=== PATIENT | female | born 1935 | race African-American/Black ===

== ENCOUNTER 2019-02-09 21:04 | Inpatient (IN) ==
[2019-02-09] MEDS ORDERED: SODIUM CHLORIDE 0.9% 500 ML IV STA (21:40)
[2019-02-09] MEDS ORDERED: CEFTAROLINE 600 MG in SODIUM CHLORIDE 0.9% 100 ML IV STA (21:40)
[2019-02-09] MEDS ORDERED: FUROSEMIDE 100 MG/10 ML VIAL IV STA (21:40)
[2019-02-09] MEDS ORDERED: ONDANSETRON 4 MG/2 ML VIAL IV STA (21:40)
[2019-02-09] MEDS ORDERED: ALBUTEROL/IPRATROPIUM 3 ML NEB RESP TX STA (21:40)
[2019-02-09 23:28] LABS: Basophils % 0.2 % (0.0-0.8); Eosinophils % 0.1 % (0.00-10.9); Hematocrit 25.9 VOL% (35.7-47.0); Hemoglobin 7.8 GM/DL (12.0-16.0); Immature Granulocytes % 1.2 %; Immature Granulocytes Absolute 0.21 #; Lymphocytes # 1.4 10*3/uL (1.4-4.0); Lymphocytes % 7.8 % (21.3-54.2); Mean Corpuscular HGB Conc 30.1 GM/DL (32-36); Mean Corpuscular Volume 85.5 FL (87-102); Mean Platelet Volume 11.3 FL (9.6-12.0); Monocytes % 5.3 % (1.7-12.7); Neutrophils % 85.4 % (38.7-73.9); Platelet Count 153 T/CUMM (130-400); Red Blood Count 3.03 MC/CUMM (3.8-5.5); Red Cell Distribution Width 18.6 % (9.3-17.3); White Blood Count 17.9 T/CUMM (4-12)
[2019-02-09 23:37] LABS: Alanine Aminotransferase 25 U/L (13-56); Albumin 2.9 G/DL (3.4-5.0); Alkaline Phosphatase 91 U/L (45-117); Aspartate Amino Transferase 31 U/L (0-37); Blood Urea Nitrogen 75 MG/DL (7-18); Calcium 8.6 MG/DL (8.5-10.1); Glucose 128 MG/DL (74-106); Total Protein 6.3 G/DL (6.4-8.3)
[2019-02-09 23:40] LABS: INR 4.7
[2019-02-09 23:44] LABS: PT Patient Result 50.3 SECS
[2019-02-09 23:46] LABS: Apearance,Urine CLEAR (Clear); Bilirubin,Urine Negative (Negative); Blood, Urine Negative (Negative); Glucose,Urine (UA) Negative (Negative); Hyaline Casts,Urine 38 /LPF (0-3); Ketones,Urine Negative (Negative); Mucus,Urine Occasional /LPF (Occasional); Nitrite,Urine Negative (Negative); Protein,Urine Negative; RBC,Urine 1 /HPF (0-4); Squamous Epithelial Cell,Urine Occasional /HPF (0-10); Urine Color Yellow (Yellow); Urine Specific Gravity 1.012 (1.001-1.035); Urine Urobilinogen < 2.0 EU/DL (0.2-1.0); WBC,Urine 4 /HPF (0-6)
[2019-02-10] MEDS ORDERED: guaiFENesin/DM ER 600-30 MG TABLET PO PRN (00:48)
[2019-02-10] MEDS ORDERED: ACETAMINOPHEN 325 MG TABLET PO PRN (00:48)
[2019-02-10] MEDS ORDERED: MORPHINE 4 MG/1 ML VIAL IV PRN (00:48)
[2019-02-10] MEDS ORDERED: NICOTINE 21 MG/24 HR PATCH TRANSDERM PRN (00:48)
[2019-02-10] MEDS ORDERED: diphenhydrAMINE CAP 25 MG CAPSULE PO PRN (00:48)
[2019-02-10] MEDS ORDERED: BISACODYL 5 MG TABLET PO PRN (00:48)
[2019-02-10] MEDS ORDERED: ONDANSETRON 4 MG/2 ML VIAL IV PRN (00:48)
[2019-02-10] MEDS: ALBUTEROL/IPRATROPIUM 3 ML NEB RESP TX SCH ×4 (01:21→19:10)
[2019-02-10] MEDS: AZITHROMYCIN INJ 500 MG in SODIUM CHLORIDE 0.9% 250 ML IV SCH (02:56)
[2019-02-10] MEDS: cefTRIAXone 1,000 MG in SYRINGE 1 EACH IV SCH ×2 (04:32→17:01)
[2019-02-10 05:17] LABS: Albumin 2.6 G/DL (3.4-5.0); Calcium 8.1 MG/DL (8.5-10.1); Osmolality,Calculated 307.8 MOS/KG (273-304); Total Protein 5.9 G/DL (6.4-8.3)
[2019-02-10 05:21] LABS: Basophils % 0.2 % (0.0-0.8); Eosinophils % 0.1 % (0.00-10.9); Hematocrit 23.2 VOL% (35.7-47.0); Hemoglobin 7.2 GM/DL (12.0-16.0); Immature Granulocytes % 0.8 %; Immature Granulocytes Absolute 0.16 #; Lymphocytes # 1.8 10*3/uL (1.4-4.0); Lymphocytes % 9.4 % (21.3-54.2); Mean Corpuscular Volume 83.5 FL (87-102); Mean Platelet Volume 11.4 FL (9.6-12.0); Monocytes % 5.2 % (1.7-12.7); Neutrophils % 84.3 % (38.7-73.9); Platelet Count 152 T/CUMM (130-400); Red Blood Count 2.78 MC/CUMM (3.8-5.5); Red Cell Distribution Width 18.6 % (9.3-17.3); White Blood Count 19.1 T/CUMM (4-12)
[2019-02-10] MEDS ORDERED: ONDANSETRON ODT 4 MG TABLET PO PRN (05:27)
[2019-02-10 05:32] LABS: Folate > 24.0 NG/ML (5.4-24.0); Vitamin B12 1492 PG/ML (211-911)
[2019-02-10 06:44] LABS: Sedimentation Rate-Westergren 78 MM/HR (0-30)
[2019-02-10] MEDS: CARVEDILOL 25 MG TABLET PO SCH ×2 (08:21→21:32)
[2019-02-10] MEDS: amLODIPine 5 MG TABLET PO SCH (08:21)
[2019-02-10] MEDS: ASPIRIN EC 81 MG TABLET PO SCH (08:21)
[2019-02-10] MEDS: PANTOPRAZOLE 40 MG TABLET PO SCH (08:21)
[2019-02-10] MEDS: ATORVASTATIN 40 MG TABLET PO SCH (08:21)
[2019-02-10] MEDS: ALLOPURINOL 100 MG TABLET PO SCH (08:21)
[2019-02-10] MEDS ORDERED: GABAPENTIN 100 MG CAPSULE PO SCH (09:00)
[2019-02-10] MEDS ORDERED: APIXABAN 2.5 MG TABLET PO SCH (09:00)
[2019-02-10 11:35] LABS: Troponin I 0.139 NG/ML (0.00-0.045)
[2019-02-10 14:15] LABS: Troponin I 0.123 NG/ML (0.00-0.045)
[2019-02-10] MEDS ORDERED: SODIUM CHLORIDE 0.9% 1,000 ML IV PRN (15:17)
[2019-02-10] MEDS: GABAPENTIN 300 MG CAPSULE PO SCH (21:32)
[2019-02-10] MEDS: DOCUSATE/SENNA 50-8.6 MG TABLET PO SCH (21:32)
[2019-02-10] MEDS: DOXAZOSIN 4 MG TABLET PO SCH (21:32)
[2019-02-11] MEDS: ALBUTEROL/IPRATROPIUM 3 ML NEB RESP TX SCH ×5 (01:17→23:27)
[2019-02-11] MEDS: AZITHROMYCIN INJ 500 MG in SODIUM CHLORIDE 0.9% 250 ML IV SCH (02:20)
[2019-02-11 02:52] LABS: Basophils % 0.1 % (0.0-0.8); Eosinophils # 0.3 10*3/uL (0.0-0.87); Eosinophils % 1.5 % (0.00-10.9); Hematocrit 29.3 VOL% (35.7-47.0); Hemoglobin 9.2 GM/DL (12.0-16.0); Immature Granulocytes % 0.5 %; Immature Granulocytes Absolute 0.08 #; Lymphocytes # 1.8 10*3/uL (1.4-4.0); Lymphocytes % 10.1 % (21.3-54.2); Mean Corpuscular HGB Conc 31.4 GM/DL (32-36); Mean Corpuscular Volume 85.2 FL (87-102); Mean Platelet Volume 11.6 FL (9.6-12.0); Monocytes % 5.3 % (1.7-12.7); Neutrophils % 82.5 % (38.7-73.9); Platelet Count 141 T/CUMM (130-400); Red Blood Count 3.44 MC/CUMM (3.8-5.5); Red Cell Distribution Width 17.4 % (9.3-17.3); White Blood Count 17.5 T/CUMM (4-12)
[2019-02-11] MEDS: cefTRIAXone 1,000 MG in SYRINGE 1 EACH IV SCH ×2 (04:17→15:11)
[2019-02-11 04:24] LABS: Calcium 8.3 MG/DL (8.5-10.1); Risk Ratio 1.75; VLDL CHOLESTEROL 13.6 MG/DL
[2019-02-11] MEDS: amLODIPine 5 MG TABLET PO SCH (08:20)
[2019-02-11] MEDS: ALLOPURINOL 100 MG TABLET PO SCH (08:20)
[2019-02-11] MEDS: CARVEDILOL 25 MG TABLET PO SCH ×2 (08:20→22:03)
[2019-02-11] MEDS: ATORVASTATIN 40 MG TABLET PO SCH (08:20)
[2019-02-11] MEDS: PANTOPRAZOLE 40 MG TABLET PO SCH (08:20)
[2019-02-11] MEDS: ASPIRIN EC 81 MG TABLET PO SCH (08:20)
[2019-02-11] MEDS: DOCUSATE/SENNA 50-8.6 MG TABLET PO SCH (22:02)
[2019-02-11] MEDS: GABAPENTIN 300 MG CAPSULE PO SCH (22:02)
[2019-02-11] MEDS: DOXAZOSIN 4 MG TABLET PO SCH (22:03)
[2019-02-12] MEDS: AZITHROMYCIN INJ 500 MG in SODIUM CHLORIDE 0.9% 250 ML IV SCH (02:48)
[2019-02-12] MEDS: cefTRIAXone 1,000 MG in SYRINGE 1 EACH IV SCH ×2 (03:12→15:09)
[2019-02-12 05:22] LABS: Basophils % 0.2 % (0.0-0.8); Eosinophils # 0.3 10*3/uL (0.0-0.87); Eosinophils % 2.6 % (0.00-10.9); Hematocrit 29.6 VOL% (35.7-47.0); Hemoglobin 9.3 GM/DL (12.0-16.0); Immature Granulocytes % 0.4 %; Immature Granulocytes Absolute 0.05 #; Lymphocytes # 1.3 10*3/uL (1.4-4.0); Lymphocytes % 10.1 % (21.3-54.2); Mean Corpuscular HGB Conc 31.4 GM/DL (32-36); Mean Corpuscular Volume 85.3 FL (87-102); Mean Platelet Volume 11.2 FL (9.6-12.0); Monocytes % 5.9 % (1.7-12.7); Neutrophils % 80.8 % (38.7-73.9); Platelet Count 135 T/CUMM (130-400); Red Blood Count 3.47 MC/CUMM (3.8-5.5); Red Cell Distribution Width 17.3 % (9.3-17.3); White Blood Count 13.1 T/CUMM (4-12)
[2019-02-12 05:39] LABS: Calcium 8.3 MG/DL (8.5-10.1); Osmolality,Calculated 302.1 MOS/KG (273-304)
[2019-02-12] MEDS: ALBUTEROL/IPRATROPIUM 3 ML NEB RESP TX SCH ×3 (07:48→19:06)
[2019-02-12] MEDS: ALLOPURINOL 100 MG TABLET PO SCH (08:36)
[2019-02-12] MEDS: CARVEDILOL 25 MG TABLET PO SCH ×2 (08:36→20:07)
[2019-02-12] MEDS: amLODIPine 5 MG TABLET PO SCH (08:36)
[2019-02-12] MEDS: ATORVASTATIN 40 MG TABLET PO SCH (08:36)
[2019-02-12] MEDS: ASPIRIN EC 81 MG TABLET PO SCH (08:36)
[2019-02-12] MEDS: PANTOPRAZOLE 40 MG TABLET PO SCH (08:36)
[2019-02-12] MEDS: DOCUSATE/SENNA 50-8.6 MG TABLET PO SCH (20:07)
[2019-02-12] MEDS: GABAPENTIN 300 MG CAPSULE PO SCH (20:07)
[2019-02-12] MEDS: DOXAZOSIN 4 MG TABLET PO SCH (20:07)
[2019-02-13] MEDS: ALBUTEROL/IPRATROPIUM 3 ML NEB RESP TX SCH ×3 (00:22→14:08)
[2019-02-13] MEDS: AZITHROMYCIN INJ 500 MG in SODIUM CHLORIDE 0.9% 250 ML IV SCH (02:58)
[2019-02-13] MEDS: cefTRIAXone 1,000 MG in SYRINGE 1 EACH IV SCH ×2 (03:02→15:45)
[2019-02-13 05:57] LABS: Basophils % 0.3 % (0.0-0.8); Eosinophils # 0.5 10*3/uL (0.0-0.87); Eosinophils % 4.6 % (0.00-10.9); Hematocrit 31.7 VOL% (35.7-47.0); Hemoglobin 9.5 GM/DL (12.0-16.0); Immature Granulocytes % 0.5 %; Immature Granulocytes Absolute 0.05 #; Lymphocytes % 10.3 % (21.3-54.2); Mean Corpuscular Volume 87.3 FL (87-102); Mean Platelet Volume 11.6 FL (9.6-12.0); Monocytes % 7.2 % (1.7-12.7); Neutrophils % 77.1 % (38.7-73.9); Platelet Count 149 T/CUMM (130-400); Red Blood Count 3.63 MC/CUMM (3.8-5.5); Red Cell Distribution Width 17.2 % (9.3-17.3)
[2019-02-13 06:12] LABS: Calcium 8.3 MG/DL (8.5-10.1); Osmolality,Calculated 298.4 MOS/KG (273-304)
[2019-02-13] MEDS: ALLOPURINOL 100 MG TABLET PO SCH (08:55)
[2019-02-13] MEDS: CARVEDILOL 25 MG TABLET PO SCH (08:55)
[2019-02-13] MEDS: ASPIRIN EC 81 MG TABLET PO SCH (08:55)
[2019-02-13] MEDS: ATORVASTATIN 40 MG TABLET PO SCH (08:55)
[2019-02-13] MEDS: PANTOPRAZOLE 40 MG TABLET PO SCH (08:56)
[2019-02-13] MEDS: amLODIPine 5 MG TABLET PO SCH (08:56)
[2019-02-13 12:50] VITALS: BP 146/73
[2019-02-23 17:21] LABS: Variant 17.9 = Hb Montgomery %
[2019-02-27 13:01] LABS: Hemoglobin A1 (Alkaline) 80.8 % (96.5-98.5); Hemoglobin A2 (Alkaline) 2.8 % (1.5-3.5)
== END 2019-02-13 16:15 | disposition swing bed (61) | DRG 194 ==
LOC: EDUNIT# → EDBD → N.ED 21:04 → N.EDINP 21:04 → N.5E 02-10 01:30 → SUATTDRO 02-10 10:32
PROVIDERS: ATTEND Internal Medicine

== ENCOUNTER 2019-09-14 16:04 | Inpatient (IN) ==
[2019-09-14 17:04] LABS: Hematocrit 26.1 VOL% (35.7-47.0); Hemoglobin 8.2 GM/DL (12.0-16.0); Immature Granulocytes % 0.3 %; Immature Granulocytes Absolute 0.03 #; Mean Corpuscular HGB Conc 31.4 GM/DL (32-36); Mean Corpuscular Volume 85.6 FL (87-102); Mean Platelet Volume 11.7 FL (9.6-12.0); Monocytes % 3.6 % (1.7-12.7); Neutrophils % 85.1 % (38.7-73.9); Platelet Count 212 T/CUMM (130-400); Red Blood Count 3.05 MC/CUMM (3.8-5.5); Red Cell Distribution Width 21.3 % (9.3-17.3); White Blood Count 8.8 T/CUMM (4-12)
[2019-09-14 17:45] LABS: Albumin 3.3 G/DL (3.4-5.0); Bilirubin,Total 0.6 MG/DL (0.2-1.0); Calcium 8.6 MG/DL (8.5-10.1); Osmolality,Calculated 327.7 MOS/KG (273-304); Thyroid Stimulating Hormone 3.38 uIU/ml (0.358-3.74)
[2019-09-14] MEDS ORDERED: PANTOPRAZOLE 40 MG VIAL IV STA (18:44)
[2019-09-14] MEDS ORDERED: SODIUM CHLORIDE 0.9% 500 ML IV STA (18:44)
[2019-09-14] MEDS ORDERED: ONDANSETRON 4 MG/2 ML VIAL IV STA (18:44)
[2019-09-14 19:22] LABS: Basophils % 0.1 % (0.0-0.8); Hematocrit 26.2 VOL% (35.7-47.0); Hemoglobin 8.3 GM/DL (12.0-16.0); Immature Granulocytes % 0.3 %; Immature Granulocytes Absolute 0.03 #; Lymphocytes # 1.3 10*3/uL (1.4-4.0); Lymphocytes % 14.3 % (21.3-54.2); Mean Corpuscular HGB Conc 31.7 GM/DL (32-36); Mean Corpuscular Volume 85.3 FL (87-102); Mean Platelet Volume 10.6 FL (9.6-12.0); Monocytes % 3.5 % (1.7-12.7); Neutrophils % 81.8 % (38.7-73.9); Platelet Count 207 T/CUMM (130-400); Red Blood Count 3.07 MC/CUMM (3.8-5.5); Red Cell Distribution Width 21.4 % (9.3-17.3); White Blood Count 8.9 T/CUMM (4-12)
[2019-09-14 19:36] LABS: PT Patient Result 10.8 SECS (9.6-12.2)
[2019-09-14 19:44] LABS: Albumin 3.3 G/DL (3.4-5.0); Bilirubin,Total 0.6 MG/DL (0.2-1.0); Calcium 8.7 MG/DL (8.5-10.1); Total Protein 6.7 G/DL (6.4-8.3)
[2019-09-14 21:36] LABS: Apearance,Urine CLEAR (Clear); Bilirubin,Urine Negative (Negative); Blood, Urine Negative (Negative); Glucose,Urine (UA) Negative (Negative); Hyaline Casts,Urine 4 /LPF (0-3); Ketones,Urine Negative (Negative); Mucus,Urine Occasional /LPF (Occasional); Nitrite,Urine Negative (Negative); Protein,Urine Negative; RBC,Urine <1 /HPF (0-4); Squamous Epithelial Cell,Urine Occasional /HPF (0-10); Urine Color Yellow (Yellow); Urine Specific Gravity 1.009 (1.001-1.035); Urine Urobilinogen < 2.0 EU/DL (0.2-1.0); WBC,Urine 1 /HPF (0-6)
[2019-09-14] MEDS ORDERED: GLUCAGON 1 MG VIAL IM PRN (23:31)
[2019-09-14] MEDS ORDERED: DOCUSATE SODIUM 100 MG CAPSULE PO PRN (23:31)
[2019-09-14] MEDS ORDERED: DEXTROSE 50% 25 GM/50 ML VIAL IV PRN (23:31)
[2019-09-14] MEDS ORDERED: ALBUTEROL/IPRATROPIUM 3 ML NEB RESP TX PRN (23:31)
[2019-09-14] MEDS ORDERED: ACETAMINOPHEN 325 MG TABLET PO PRN (23:31)
[2019-09-14] MEDS ORDERED: ONDANSETRON 4 MG/2 ML VIAL IV PRN (23:31)
[2019-09-14] MEDS ORDERED: SODIUM CHLORIDE 0.9% 1,000 ML IV PRN (23:31)
[2019-09-15] MEDS ORDERED: INFLUENZA VIRUS VACCINE 0.5 ML SYRINGE IM ONE (00:17)
[2019-09-15 00:18] LABS: Hematocrit 24.7 VOL% (35.7-47.0); Hemoglobin 7.9 GM/DL (12.0-16.0)
[2019-09-15] MEDS: DOXAZOSIN 4 MG TABLET PO SCH ×2 (00:40→21:26)
[2019-09-15] MEDS: ISOSORBIDE DINITRATE 20 MG TABLET PO SCH ×3 (00:41→21:26)
[2019-09-15] MEDS: carvediloL 25 MG TABLET PO SCH ×3 (00:41→16:42)
[2019-09-15] MEDS ORDERED: INSULIN GLARGINE 100 UNIT/ML SUBCUT SCH (07:30)
[2019-09-15] MEDS: INSULIN REGULAR 100 UNIT/ML SUBCUT SCH ×4 (08:05→21:27)
[2019-09-15 08:28] LABS: Basophils % 0.2 % (0.0-0.8); Eosinophils # 0.1 10*3/uL (0.0-0.87); Eosinophils % 1.7 % (0.00-10.9); Hematocrit 29.7 VOL% (35.7-47.0); Immature Granulocytes % 0.5 %; Immature Granulocytes Absolute 0.03 #; Lymphocytes # 1.6 10*3/uL (1.4-4.0); Lymphocytes % 25.8 % (21.3-54.2); Mean Corpuscular Volume 84.1 FL (87-102); Mean Platelet Volume 11.1 FL (9.6-12.0); Monocytes % 7.9 % (1.7-12.7); Neutrophils % 63.9 % (38.7-73.9); Platelet Count 187 T/CUMM (130-400); Red Blood Count 3.53 MC/CUMM (3.8-5.5); Red Cell Distribution Width 19.3 % (9.3-17.3); White Blood Count 6.3 T/CUMM (4-12)
[2019-09-15 08:41] LABS: Hemoglobin 9.8 GM/DL (12.0-16.0)
[2019-09-15 08:43] LABS: Calcium 8.5 MG/DL (8.5-10.1); Osmolality,Calculated 321.4 MOS/KG (273-304)
[2019-09-15] MEDS: DEXTROSE 10% 250 ML BAG IV PRN ×2 (08:46→09:36)
[2019-09-15] MEDS: PANTOPRAZOLE 40 MG VIAL IV SCH ×2 (09:29→21:25)
[2019-09-15] MEDS ORDERED: propofoL 200 MG/20 ML VIAL IV ONE (10:00)
[2019-09-15] MEDS ORDERED: ETOMIDATE 20 MG/10 ML VIAL IV ONE (10:00)
[2019-09-15] MEDS ORDERED: LIDOCAINE 2% 5 ML VIAL ONE (10:00)
[2019-09-15] MEDS: MULTIVITAMIN (CENTRUM) TABLET PO SCH (10:10)
[2019-09-15] MEDS: LOSARTAN 50 MG TABLET PO SCH (10:10)
[2019-09-15] MEDS: allopurinoL 100 MG TABLET PO SCH (10:11)
[2019-09-15] MEDS: ATORVASTATIN 40 MG TABLET PO SCH (10:11)
[2019-09-15] MEDS: amLODIPine 2.5 MG TABLET PO SCH (10:11)
[2019-09-15] MEDS: TORSEMIDE 20 MG TABLET PO SCH (10:11)
[2019-09-15] MEDS: POTASSIUM CHLORIDE 10 MEQ TABLET PO SCH (10:11)
[2019-09-15] MEDS: predniSONE 10 MG TABLET PO SCH (10:11)
[2019-09-15 11:52] LABS: Hematocrit 30.8 VOL% (35.7-47.0)
[2019-09-15 12:21] LABS: % Iron Saturation 12.9 % (18-50)
[2019-09-15 18:10] LABS: Hemoglobin 9.6 GM/DL (12.0-16.0)
[2019-09-16 06:49] LABS: Basophils % 0.2 % (0.0-0.8); Eosinophils # 0.1 10*3/uL (0.0-0.87); Hematocrit 30.6 VOL% (35.7-47.0); Hemoglobin 9.5 GM/DL (12.0-16.0); Immature Granulocytes % 0.3 %; Immature Granulocytes Absolute 0.02 #; Lymphocytes # 1.4 10*3/uL (1.4-4.0); Mean Corpuscular Volume 87.9 FL (87-102); Mean Platelet Volume 11.3 FL (9.6-12.0); Monocytes % 9.6 % (1.7-12.7); Neutrophils % 64.9 % (38.7-73.9); Platelet Count 177 T/CUMM (130-400); Red Blood Count 3.48 MC/CUMM (3.8-5.5); Red Cell Distribution Width 19.3 % (9.3-17.3); White Blood Count 5.9 T/CUMM (4-12)
[2019-09-16] MEDS ORDERED: LINACLOTIDE 145 MCG CAPSULE PO SCH (07:30)
[2019-09-16] MEDS: INSULIN REGULAR 100 UNIT/ML SUBCUT SCH ×3 (08:19→16:31)
[2019-09-16] MEDS: PANTOPRAZOLE 40 MG VIAL IV SCH (09:42)
[2019-09-16] MEDS: carvediloL 25 MG TABLET PO SCH ×2 (09:42→16:32)
[2019-09-16] MEDS: ATORVASTATIN 40 MG TABLET PO SCH (09:42)
[2019-09-16] MEDS: amLODIPine 2.5 MG TABLET PO SCH (09:42)
[2019-09-16] MEDS: allopurinoL 100 MG TABLET PO SCH (09:42)
[2019-09-16] MEDS: ISOSORBIDE DINITRATE 20 MG TABLET PO SCH (09:43)
[2019-09-16] MEDS: predniSONE 10 MG TABLET PO SCH (09:43)
[2019-09-16] MEDS: POTASSIUM CHLORIDE 10 MEQ TABLET PO SCH (09:43)
[2019-09-16] MEDS: LOSARTAN 50 MG TABLET PO SCH (09:43)
[2019-09-16] MEDS: MULTIVITAMIN (CENTRUM) TABLET PO SCH (09:43)
[2019-09-16] MEDS: TORSEMIDE 20 MG TABLET PO SCH (09:43)
[2019-09-16 16:31] VITALS: BP 189/75
[2019-09-17] MEDS ORDERED: BISACODYL 5 MG TABLET PO SCH (07:00)
[2019-09-17] MEDS ORDERED: PANTOPRAZOLE 40 MG TABLET PO SCH (09:00)
[2019-09-17] MEDS ORDERED: POLYETHYLENE GLYCOL 3350/ELECTROLYTES 4,000 ML BOTTLE PO ONE (18:00)
[2019-09-17] MEDS ORDERED: MAGNESIUM CITRATE 300 ML BOTTLE PO ONE (21:00)
[2019-09-18] MEDS ORDERED: metOLazone 5 MG TABLET PO SCH (09:00)
== END 2019-09-16 18:02 | disposition home health service (06) | DRG 813 ==
LOC: N.ED 16:04 → SUATTDRO 22:08 → N.EDINP 22:08 → N.5E 22:45
PROVIDERS: ADMIT Internal Medicine; ATTEND Phlebology

== ENCOUNTER 2020-09-18 06:34 | Inpatient (IN) ==
[2020-09-18] MEDS ORDERED: SODIUM CHLORIDE 0.9% 1,000 ML IV STA (06:52)
[2020-09-18 06:59] LABS: Basophils % 0.2 % (0.0-0.8); Hemoglobin 9.2 GM/DL (12.0-16.0); Immature Granulocytes % 0.5 %; Immature Granulocytes Absolute 0.03 #; Lymphocytes # 0.8 10*3/uL (1.4-4.0); Lymphocytes % 14.2 % (21.3-54.2); Mean Corpuscular HGB Conc 32.9 GM/DL (32-36); Mean Platelet Volume 12.1 FL (9.6-12.0); Monocytes % 5.9 % (1.7-12.7); Neutrophils % 79.2 % (38.7-73.9); Platelet Count 144 T/CUMM (130-400); Red Blood Count 2.98 MC/CUMM (3.8-5.5); Red Cell Distribution Width 15.9 % (9.3-17.3); White Blood Count 5.9 T/CUMM (4-12)
[2020-09-18 07:11] LABS: INR 1.1; PT Patient Result 11.6 SECS (9.8-11.9); Partial Thromboplastin Time 20.2 SECS (23.9-33.8)
[2020-09-18 07:21] LABS: Albumin 3.1 G/DL (3.4-5.0); Bilirubin,Total 0.6 MG/DL (0.2-1.0); Osmolality,Calculated 343.7 MOS/KG (273-304); Total Protein 6.8 G/DL (6.4-8.3)
[2020-09-18] MEDS ORDERED: DEXAMETHASONE 10 MG/1 ML VIAL IV STA (07:39)
[2020-09-18] MEDS ORDERED: DEXTROSE 50% 25 GM/50 ML VIAL IV STA (07:41)
[2020-09-18 07:57] LABS: Bilirubin,Urine Negative (Negative); Blood, Urine Negative (Negative); Glucose,Urine (UA) Negative (Negative); Hyaline Casts,Urine 24 /LPF (0-3); Ketones,Urine Negative (Negative); Mucus,Urine Occasional /LPF (Occasional); Nitrite,Urine Negative (Negative); Protein,Urine Negative; Urine Appearance CLEAR (Clear); Urine Color Yellow (Yellow); Urine Urobilinogen < 2.0 EU/DL (0.2-1.0)
[2020-09-18] MEDS ORDERED: ONDANSETRON 4 MG/2 ML VIAL IV PRN (09:05)
[2020-09-18] MEDS ORDERED: GLUCAGON 1 MG VIAL IM PRN (09:05)
[2020-09-18] MEDS ORDERED: SODIUM CHLORIDE 0.9% 1,000 ML IV SCH (09:30)
[2020-09-18] MEDS: ACETAMINOPHEN 325 MG TABLET PO PRN (15:31)
[2020-09-18] MEDS: carvediloL 25 MG TABLET PO SCH (16:23)
[2020-09-18] MEDS: FERROUS SULFATE 325 MG TABLET PO SCH (16:23)
[2020-09-18] MEDS: DOXAZOSIN 4 MG TABLET PO SCH (20:19)
[2020-09-18] MEDS: ISOSORBIDE DINITRATE 20 MG TABLET PO SCH (20:20)
[2020-09-18] MEDS: ATORVASTATIN 40 MG TABLET PO SCH (20:20)
[2020-09-18] MEDS ORDERED: DEXAMETHASONE 4 MG/1 ML VIAL IV ONE (21:00)
[2020-09-19 05:53] LABS: Hematocrit 24.5 VOL% (35.7-47.0); Hemoglobin 8.2 GM/DL (12.0-16.0); Immature Granulocytes % 0.3 %; Immature Granulocytes Absolute 0.02 #; Lymphocytes # 0.8 10*3/uL (1.4-4.0); Lymphocytes % 13.9 % (21.3-54.2); Mean Corpuscular HGB Conc 33.5 GM/DL (32-36); Mean Corpuscular Volume 92.8 FL (87-102); Mean Platelet Volume 12.4 FL (9.6-12.0); Monocytes % 1.4 % (1.7-12.7); Neutrophils % 84.4 % (38.7-73.9); Platelet Count 124 T/CUMM (130-400); Red Blood Count 2.64 MC/CUMM (3.8-5.5); Red Cell Distribution Width 15.6 % (9.3-17.3); White Blood Count 5.7 T/CUMM (4-12)
[2020-09-19 06:09] LABS: Albumin 2.7 G/DL (3.4-5.0); Bilirubin,Total 0.6 MG/DL (0.2-1.0); Calcium 8.3 MG/DL (8.5-10.1); Osmolality,Calculated 346.1 MOS/KG (273-304); Total Protein 6.2 G/DL (6.4-8.3)
[2020-09-19] MEDS: carvediloL 25 MG TABLET PO SCH ×2 (09:00→16:35)
[2020-09-19] MEDS: amLODIPine 2.5 MG TABLET PO SCH (09:00)
[2020-09-19] MEDS: DEXAMETHASONE 4 MG/1 ML VIAL IV SCH ×2 (09:00→20:08)
[2020-09-19] MEDS: ISOSORBIDE DINITRATE 20 MG TABLET PO SCH ×2 (09:00→20:42)
[2020-09-19] MEDS: FERROUS SULFATE 325 MG TABLET PO SCH ×2 (09:00→16:35)
[2020-09-19] MEDS: ASPIRIN EC 81 MG TABLET PO SCH (09:11)
[2020-09-19] MEDS: ATORVASTATIN 40 MG TABLET PO SCH (20:42)
[2020-09-19] MEDS: DOXAZOSIN 4 MG TABLET PO SCH (20:42)
[2020-09-20] MEDS: ASPIRIN EC 81 MG TABLET PO SCH (09:40)
[2020-09-20] MEDS: FERROUS SULFATE 325 MG TABLET PO SCH ×2 (09:41→17:45)
[2020-09-20] MEDS: carvediloL 25 MG TABLET PO SCH ×2 (09:41→17:45)
[2020-09-20] MEDS: amLODIPine 2.5 MG TABLET PO SCH (09:41)
[2020-09-20] MEDS: DEXAMETHASONE 4 MG/1 ML VIAL IV SCH ×2 (09:41→22:28)
[2020-09-20] MEDS: ISOSORBIDE DINITRATE 20 MG TABLET PO SCH ×2 (09:41→22:31)
[2020-09-20 10:37] LABS: Hematocrit 23.5 VOL% (35.7-47.0); Hemoglobin 7.9 GM/DL (12.0-16.0); Immature Granulocytes % 0.5 %; Immature Granulocytes Absolute 0.04 #; Lymphocytes # 0.8 10*3/uL (1.4-4.0); Lymphocytes % 10.1 % (21.3-54.2); Mean Corpuscular HGB Conc 33.6 GM/DL (32-36); Mean Corpuscular Volume 91.4 FL (87-102); Mean Platelet Volume 11.6 FL (9.6-12.0); Monocytes % 3.1 % (1.7-12.7); Neutrophils % 86.3 % (38.7-73.9); Platelet Count 137 T/CUMM (130-400); Red Blood Count 2.57 MC/CUMM (3.8-5.5); Red Cell Distribution Width 15.4 % (9.3-17.3); White Blood Count 8.2 T/CUMM (4-12)
[2020-09-20 11:09] LABS: Albumin 2.5 G/DL (3.4-5.0); Bilirubin,Total 0.5 MG/DL (0.2-1.0); Calcium 7.8 MG/DL (8.5-10.1); Osmolality,Calculated 344.3 MOS/KG (273-304)
[2020-09-20] MEDS ORDERED: DEXTROSE 50% 25 GM/50 ML VIAL IV PRN (11:51)
[2020-09-20] MEDS ORDERED: GLUCAGON 1 MG VIAL IM PRN (11:51)
[2020-09-20] MEDS: INSULIN LISPRO 100 UNIT/ML SUBCUT SCH ×3 (12:34→22:30)
[2020-09-20] MEDS: DOXAZOSIN 4 MG TABLET PO SCH (22:27)
[2020-09-20] MEDS: INSULIN GLARGINE 100 UNIT/ML SUBCUT SCH (22:31)
[2020-09-20] MEDS: ENOXAPARIN 30 MG/0.3 ML SYRINGE SUBCUT SCH (22:32)
[2020-09-20] MEDS: ATORVASTATIN 40 MG TABLET PO SCH (22:32)
[2020-09-21 05:47] LABS: Immature Granulocytes % 0.7 %; Immature Granulocytes Absolute 0.06 #; Lymphocytes # 0.9 10*3/uL (1.4-4.0); Lymphocytes % 10.2 % (21.3-54.2); Mean Corpuscular HGB Conc 33.3 GM/DL (32-36); Mean Corpuscular Volume 90.6 FL (87-102); Mean Platelet Volume 11.8 FL (9.6-12.0); Monocytes % 2.5 % (1.7-12.7); NRBC # 0.02 10*3/uL; Neutrophils % 86.6 % (38.7-73.9); Platelet Count 137 T/CUMM (130-400); Red Blood Count 2.65 MC/CUMM (3.8-5.5); Red Cell Distribution Width 14.9 % (9.3-17.3); White Blood Count 8.7 T/CUMM (4-12)
[2020-09-21 06:01] LABS: Albumin 2.6 G/DL (3.4-5.0); Bilirubin,Total 0.5 MG/DL (0.2-1.0); Calcium 7.9 MG/DL (8.5-10.1); Osmolality,Calculated 328.5 MOS/KG (273-304)
[2020-09-21] MEDS: INSULIN LISPRO 100 UNIT/ML SUBCUT SCH ×4 (08:08→23:21)
[2020-09-21] MEDS: ASPIRIN EC 81 MG TABLET PO SCH (08:54)
[2020-09-21] MEDS: FERROUS SULFATE 325 MG TABLET PO SCH ×2 (08:54→16:54)
[2020-09-21] MEDS: DEXAMETHASONE 4 MG/1 ML VIAL IV SCH ×2 (08:54→23:21)
[2020-09-21] MEDS: carvediloL 25 MG TABLET PO SCH ×2 (08:54→16:54)
[2020-09-21] MEDS: ISOSORBIDE DINITRATE 20 MG TABLET PO SCH ×2 (08:54→23:23)
[2020-09-21] MEDS: amLODIPine 2.5 MG TABLET PO SCH (08:54)
[2020-09-21 13:27] LABS: % Iron Saturation 40.2 % (18-50)
[2020-09-21] MEDS: DOXAZOSIN 4 MG TABLET PO SCH (23:21)
[2020-09-21] MEDS: INSULIN GLARGINE 100 UNIT/ML SUBCUT SCH (23:24)
[2020-09-21] MEDS: ATORVASTATIN 40 MG TABLET PO SCH (23:24)
[2020-09-21] MEDS: ENOXAPARIN 30 MG/0.3 ML SYRINGE SUBCUT SCH (23:24)
[2020-09-22] MEDS: INSULIN LISPRO 100 UNIT/ML SUBCUT SCH ×4 (09:28→21:10)
[2020-09-22] MEDS: carvediloL 25 MG TABLET PO SCH ×2 (09:29→16:09)
[2020-09-22] MEDS: FERROUS SULFATE 325 MG TABLET PO SCH ×2 (09:29→16:09)
[2020-09-22] MEDS: DEXAMETHASONE 4 MG/1 ML VIAL IV SCH ×2 (09:29→21:12)
[2020-09-22] MEDS: amLODIPine 2.5 MG TABLET PO SCH (09:29)
[2020-09-22] MEDS: ISOSORBIDE DINITRATE 20 MG TABLET PO SCH ×2 (09:29→21:12)
[2020-09-22] MEDS: ASPIRIN EC 81 MG TABLET PO SCH (09:29)
[2020-09-22] MEDS: INSULIN GLARGINE 100 UNIT/ML SUBCUT SCH (21:11)
[2020-09-22] MEDS: ATORVASTATIN 40 MG TABLET PO SCH (21:12)
[2020-09-22] MEDS: DOXAZOSIN 4 MG TABLET PO SCH (21:12)
[2020-09-22] MEDS: ENOXAPARIN 30 MG/0.3 ML SYRINGE SUBCUT SCH (21:12)
[2020-09-23] MEDS ORDERED: hydrALAZINE 20 MG/1 ML VIAL IV PRN (04:02)
[2020-09-23] MEDS: INSULIN LISPRO 100 UNIT/ML SUBCUT SCH ×4 (07:38→21:42)
[2020-09-23 08:03] LABS: Calcium 8.3 MG/DL (8.5-10.1); Osmolality,Calculated 329.7 MOS/KG (273-304)
[2020-09-23] MEDS: carvediloL 25 MG TABLET PO SCH ×2 (09:10→16:11)
[2020-09-23] MEDS: ISOSORBIDE DINITRATE 20 MG TABLET PO SCH ×2 (09:10→21:12)
[2020-09-23] MEDS: amLODIPine 2.5 MG TABLET PO SCH (09:10)
[2020-09-23] MEDS: ASPIRIN EC 81 MG TABLET PO SCH (09:10)
[2020-09-23] MEDS: DEXAMETHASONE 4 MG/1 ML VIAL IV SCH ×2 (09:10→21:12)
[2020-09-23] MEDS: FERROUS SULFATE 325 MG TABLET PO SCH ×2 (09:10→16:11)
[2020-09-23] MEDS ORDERED: MAGNESIUM CITRATE 300 ML BOTTLE PO ONE (11:00)
[2020-09-23] MEDS: DOCUSATE SODIUM 100 MG CAPSULE PO SCH ×2 (11:08→21:12)
[2020-09-23] MEDS: levETIRAcetam 500 MG TABLET PO SCH ×2 (11:08→21:12)
[2020-09-23] MEDS ORDERED: OLANZapine 10 MG VIAL IM PRN (15:37)
[2020-09-23] MEDS: OLANZapine 2.5 MG TABLET PO PRN (16:12)
[2020-09-23] MEDS: INSULIN GLARGINE 100 UNIT/ML SUBCUT SCH (21:11)
[2020-09-23] MEDS: ENOXAPARIN 30 MG/0.3 ML SYRINGE SUBCUT SCH (21:11)
[2020-09-23] MEDS: ATORVASTATIN 40 MG TABLET PO SCH (21:12)
[2020-09-23] MEDS: DOXAZOSIN 4 MG TABLET PO SCH (21:12)
[2020-09-24] MEDS: OLANZapine 2.5 MG TABLET PO PRN ×2 (08:54→13:27)
[2020-09-24] MEDS: ISOSORBIDE DINITRATE 20 MG TABLET PO SCH ×2 (08:54→22:19)
[2020-09-24] MEDS: carvediloL 25 MG TABLET PO SCH ×2 (08:54→18:17)
[2020-09-24] MEDS: amLODIPine 2.5 MG TABLET PO SCH (08:54)
[2020-09-24] MEDS: levETIRAcetam 500 MG TABLET PO SCH (08:54)
[2020-09-24] MEDS: ASPIRIN EC 81 MG TABLET PO SCH (08:54)
[2020-09-24] MEDS: FERROUS SULFATE 325 MG TABLET PO SCH ×2 (08:54→18:17)
[2020-09-24] MEDS: DOCUSATE SODIUM 100 MG CAPSULE PO SCH ×2 (08:54→22:19)
[2020-09-24] MEDS: INSULIN LISPRO 100 UNIT/ML SUBCUT SCH ×4 (08:54→22:43)
[2020-09-24] MEDS: DEXAMETHASONE 4 MG/1 ML VIAL IV SCH ×2 (15:31→22:19)
[2020-09-24] MEDS: LORazepam 2 MG/1 ML VIAL IV PRN (20:37)
[2020-09-24] MEDS: DOXAZOSIN 4 MG TABLET PO SCH (22:18)
[2020-09-24] MEDS: ENOXAPARIN 30 MG/0.3 ML SYRINGE SUBCUT SCH (22:18)
[2020-09-24] MEDS: levETIRAcetam 250 MG TABLET PO SCH (22:19)
[2020-09-24] MEDS: ATORVASTATIN 40 MG TABLET PO SCH (22:19)
[2020-09-24] MEDS: SODIUM CHLORIDE 0.9% 1,000 ML IV SCH (22:21)
[2020-09-24] MEDS: INSULIN GLARGINE 100 UNIT/ML SUBCUT SCH (22:42)
[2020-09-25] MEDS: MORPHINE 4 MG/1 ML VIAL IV PRN (03:53)
[2020-09-25 05:38] LABS: Hematocrit 23.8 VOL% (35.7-47.0); Immature Granulocytes % 0.5 %; Immature Granulocytes Absolute 0.04 #; Lymphocytes # 0.4 10*3/uL (1.4-4.0); Lymphocytes % 4.6 % (21.3-54.2); Mean Corpuscular HGB Conc 33.6 GM/DL (32-36); Mean Corpuscular Volume 90.5 FL (87-102); Mean Platelet Volume 11.8 FL (9.6-12.0); Monocytes % 2.3 % (1.7-12.7); Neutrophils % 92.6 % (38.7-73.9); Platelet Count 123 T/CUMM (130-400); Red Blood Count 2.63 MC/CUMM (3.8-5.5); Red Cell Distribution Width 15.2 % (9.3-17.3); White Blood Count 8.3 T/CUMM (4-12)
[2020-09-25 05:59] LABS: Lymphocytes 3 % (20-55); Platelet Estimate Normal; Segmented Neutrophils 95 % (50-85); Total Cells Counted 100
[2020-09-25 06:00] LABS: Hypochromasia 1+; Microcytosis 1+; Ovalocytes Slight
[2020-09-25 06:03] LABS: Albumin 2.4 G/DL (3.4-5.0); Bilirubin,Total 0.7 MG/DL (0.2-1.0); Osmolality,Calculated 336.5 MOS/KG (273-304); Total Protein 5.8 G/DL (6.4-8.3)
[2020-09-25] MEDS: levETIRAcetam 250 MG TABLET PO SCH ×2 (09:33→22:05)
[2020-09-25] MEDS: carvediloL 25 MG TABLET PO SCH ×2 (09:33→16:59)
[2020-09-25] MEDS: FERROUS SULFATE 325 MG TABLET PO SCH ×2 (09:34→16:59)
[2020-09-25] MEDS: ASPIRIN EC 81 MG TABLET PO SCH (09:34)
[2020-09-25] MEDS: amLODIPine 2.5 MG TABLET PO SCH (09:34)
[2020-09-25] MEDS: ISOSORBIDE DINITRATE 20 MG TABLET PO SCH ×2 (09:34→22:05)
[2020-09-25] MEDS: DOCUSATE SODIUM 100 MG CAPSULE PO SCH ×2 (09:34→22:05)
[2020-09-25] MEDS: SODIUM CHLORIDE 0.9% 1,000 ML IV SCH ×2 (09:34→22:05)
[2020-09-25] MEDS: DEXAMETHASONE 4 MG/1 ML VIAL IV SCH ×2 (09:35→22:06)
[2020-09-25] MEDS: INSULIN LISPRO 100 UNIT/ML SUBCUT SCH ×4 (09:44→22:06)
[2020-09-25] MEDS: DOXAZOSIN 4 MG TABLET PO SCH (22:05)
[2020-09-25] MEDS: ENOXAPARIN 30 MG/0.3 ML SYRINGE SUBCUT SCH (22:05)
[2020-09-25] MEDS: ATORVASTATIN 40 MG TABLET PO SCH (22:06)
[2020-09-25] MEDS: INSULIN GLARGINE 100 UNIT/ML SUBCUT SCH (22:07)
[2020-09-26] MEDS: levETIRAcetam 250 MG TABLET PO SCH ×2 (08:36→21:56)
[2020-09-26] MEDS: DOCUSATE SODIUM 100 MG CAPSULE PO SCH (08:36)
[2020-09-26] MEDS: DEXAMETHASONE 4 MG/1 ML VIAL IV SCH ×2 (08:36→21:59)
[2020-09-26] MEDS: FERROUS SULFATE 325 MG TABLET PO SCH ×2 (08:36→17:33)
[2020-09-26] MEDS: ISOSORBIDE DINITRATE 20 MG TABLET PO SCH ×2 (08:36→21:56)
[2020-09-26] MEDS: amLODIPine 2.5 MG TABLET PO SCH (08:36)
[2020-09-26] MEDS: carvediloL 25 MG TABLET PO SCH ×2 (08:36→17:33)
[2020-09-26] MEDS: ASPIRIN EC 81 MG TABLET PO SCH (08:36)
[2020-09-26] MEDS: INSULIN LISPRO 100 UNIT/ML SUBCUT SCH ×4 (08:37→21:55)
[2020-09-26] MEDS: SODIUM CHLORIDE 0.9% 1,000 ML IV SCH ×2 (08:37→23:21)
[2020-09-26] MEDS: OLANZapine 2.5 MG TABLET PO PRN ×3 (10:20→21:55)
[2020-09-26 17:05] LABS: Albumin 2.3 G/DL (3.4-5.0); Bilirubin,Total 0.4 MG/DL (0.2-1.0); Calcium 7.6 MG/DL (8.5-10.1); Osmolality,Calculated 341.1 MOS/KG (273-304); Total Protein 5.3 G/DL (6.4-8.3)
[2020-09-26] MEDS: MORPHINE 4 MG/1 ML VIAL IV PRN (17:33)
[2020-09-26] MEDS: INSULIN GLARGINE 100 UNIT/ML SUBCUT SCH (21:54)
[2020-09-26] MEDS: DOXAZOSIN 4 MG TABLET PO SCH (21:55)
[2020-09-26] MEDS: ATORVASTATIN 40 MG TABLET PO SCH (21:55)
[2020-09-26] MEDS: ENOXAPARIN 30 MG/0.3 ML SYRINGE SUBCUT SCH (21:56)
[2020-09-26] MEDS: DOCUSATE SODIUM 100 MG/10 ML UDCUP PO SCH (21:56)
[2020-09-27] MEDS: MORPHINE 4 MG/1 ML VIAL IV PRN (00:35)
[2020-09-27 06:11] LABS: Hematocrit 24.2 VOL% (35.7-47.0); Hemoglobin 7.9 GM/DL (12.0-16.0); Immature Granulocytes % 0.6 %; Immature Granulocytes Absolute 0.08 #; Lymphocytes # 0.5 10*3/uL (1.4-4.0); Lymphocytes % 3.7 % (21.3-54.2); Mean Corpuscular HGB Conc 32.6 GM/DL (32-36); Mean Corpuscular Volume 92.7 FL (87-102); Mean Platelet Volume 12.7 FL (9.6-12.0); Monocytes % 3.1 % (1.7-12.7); Neutrophils % 92.6 % (38.7-73.9); Platelet Count 135 T/CUMM (130-400); Red Blood Count 2.61 MC/CUMM (3.8-5.5); Red Cell Distribution Width 15.3 % (9.3-17.3); White Blood Count 13.1 T/CUMM (4-12)
[2020-09-27 07:45] LABS: Acanthocytes Few; Hypochromasia 1+; Lymphocytes 2 % (20-55); Microcytosis 1+; Segmented Neutrophils 96 % (50-85); Total Cells Counted 100
[2020-09-27 07:46] LABS: Ovalocytes Slight; Platelet Estimate Adequate
[2020-09-27 07:58] LABS: Calcium 7.5 MG/DL (8.5-10.1); Osmolality,Calculated 336.8 MOS/KG (273-304)
[2020-09-27] MEDS: amLODIPine 2.5 MG TABLET PO SCH (08:22)
[2020-09-27] MEDS: ASPIRIN EC 81 MG TABLET PO SCH (08:22)
[2020-09-27] MEDS: carvediloL 25 MG TABLET PO SCH ×2 (08:22→17:32)
[2020-09-27] MEDS: OLANZapine 2.5 MG TABLET PO PRN (08:22)
[2020-09-27] MEDS: DEXAMETHASONE 4 MG/1 ML VIAL IV SCH ×2 (08:22→22:07)
[2020-09-27] MEDS: DOCUSATE SODIUM 100 MG/10 ML UDCUP PO SCH ×2 (08:22→22:05)
[2020-09-27] MEDS: ISOSORBIDE DINITRATE 20 MG TABLET PO SCH ×2 (08:22→22:05)
[2020-09-27] MEDS: FERROUS SULFATE 325 MG TABLET PO SCH ×2 (08:22→17:32)
[2020-09-27] MEDS: INSULIN LISPRO 100 UNIT/ML SUBCUT SCH ×4 (08:22→22:07)
[2020-09-27] MEDS: levETIRAcetam 250 MG TABLET PO SCH ×2 (08:22→22:05)
[2020-09-27] MEDS: SODIUM CHLORIDE 0.9% 1,000 ML IV SCH (12:30)
[2020-09-27] MEDS: HYDROCORTISONE 1% CREAM 28 GM TUBE TOP SCH ×2 (15:40→22:11)
[2020-09-27] MEDS: ATORVASTATIN 40 MG TABLET PO SCH (22:06)
[2020-09-27] MEDS: ENOXAPARIN 30 MG/0.3 ML SYRINGE SUBCUT SCH (22:06)
[2020-09-27] MEDS: DOXAZOSIN 4 MG TABLET PO SCH (22:06)
[2020-09-27] MEDS: INSULIN GLARGINE 100 UNIT/ML SUBCUT SCH (22:06)
[2020-09-28] MEDS: SODIUM CHLORIDE 0.9% 1,000 ML IV SCH ×2 (04:16→16:25)
[2020-09-28] MEDS: DOCUSATE SODIUM 100 MG/10 ML UDCUP PO SCH ×2 (08:19→20:18)
[2020-09-28] MEDS: ASPIRIN EC 81 MG TABLET PO SCH (08:19)
[2020-09-28] MEDS: INSULIN LISPRO 100 UNIT/ML SUBCUT SCH ×4 (08:19→20:27)
[2020-09-28] MEDS: ISOSORBIDE DINITRATE 20 MG TABLET PO SCH ×2 (08:19→20:19)
[2020-09-28] MEDS: amLODIPine 2.5 MG TABLET PO SCH (08:20)
[2020-09-28] MEDS: levETIRAcetam 250 MG TABLET PO SCH ×2 (08:20→20:19)
[2020-09-28] MEDS: FERROUS SULFATE 325 MG TABLET PO SCH ×2 (08:20→16:20)
[2020-09-28] MEDS: carvediloL 25 MG TABLET PO SCH ×2 (08:20→16:21)
[2020-09-28] MEDS: DEXAMETHASONE 4 MG/1 ML VIAL IV SCH ×2 (08:22→20:27)
[2020-09-28] MEDS: HYDROCORTISONE 1% CREAM 28 GM TUBE TOP SCH ×3 (08:22→20:26)
[2020-09-28 13:02] LABS: Basophils % 0.1 % (0.0-0.8); Hematocrit 25.3 VOL% (35.7-47.0); Hemoglobin 8.2 GM/DL (12.0-16.0); Immature Granulocytes % 0.5 %; Immature Granulocytes Absolute 0.05 #; Lymphocytes # 0.4 10*3/uL (1.4-4.0); Lymphocytes % 3.5 % (21.3-54.2); Mean Corpuscular HGB Conc 32.4 GM/DL (32-36); Mean Corpuscular Volume 94.1 FL (87-102); Mean Platelet Volume 12.3 FL (9.6-12.0); Monocytes % 3.2 % (1.7-12.7); Neutrophils % 92.7 % (38.7-73.9); Platelet Count 132 T/CUMM (130-400); Red Blood Count 2.69 MC/CUMM (3.8-5.5); Red Cell Distribution Width 15.5 % (9.3-17.3); White Blood Count 10.9 T/CUMM (4-12)
[2020-09-28 13:23] LABS: Anisocytosis 1+; Lymphocytes 5 % (20-55); Platelet Estimate Adequate; Poikilocytosis 1+; Segmented Neutrophils 94 % (50-85); Total Cells Counted 100
[2020-09-28 13:24] LABS: Macrocytosis 1+
[2020-09-28 13:25] LABS: Acanthocytes Few; Burr Cells 2+
[2020-09-28 13:27] LABS: Calcium 7.6 MG/DL (8.5-10.1); Osmolality,Calculated 333.4 MOS/KG (273-304)
[2020-09-28] MEDS: ZIPRASIDONE 20 MG/1 ML VIAL IM PRN (15:35)
[2020-09-28] MEDS: ATORVASTATIN 40 MG TABLET PO SCH (20:19)
[2020-09-28] MEDS: DOXAZOSIN 4 MG TABLET PO SCH (20:19)
[2020-09-28] MEDS: ENOXAPARIN 30 MG/0.3 ML SYRINGE SUBCUT SCH (20:21)
[2020-09-28] MEDS: INSULIN GLARGINE 100 UNIT/ML SUBCUT SCH (20:22)
[2020-09-29] MEDS: SODIUM CHLORIDE 0.9% 1,000 ML IV SCH (06:19)
[2020-09-29 06:39] LABS: Basophils % 0.1 % (0.0-0.8); Hematocrit 23.8 VOL% (35.7-47.0); Hemoglobin 7.9 GM/DL (12.0-16.0); Immature Granulocytes % 0.6 %; Immature Granulocytes Absolute 0.06 #; Lymphocytes # 0.5 10*3/uL (1.4-4.0); Lymphocytes % 4.7 % (21.3-54.2); Mean Corpuscular HGB Conc 33.2 GM/DL (32-36); Mean Corpuscular Volume 92.2 FL (87-102); Mean Platelet Volume 12.2 FL (9.6-12.0); Monocytes % 4.5 % (1.7-12.7); Neutrophils % 90.1 % (38.7-73.9); Platelet Count 119 T/CUMM (130-400); Red Blood Count 2.58 MC/CUMM (3.8-5.5); Red Cell Distribution Width 15.8 % (9.3-17.3); White Blood Count 10.3 T/CUMM (4-12)
[2020-09-29 07:05] LABS: Calcium 7.7 MG/DL (8.5-10.1)
[2020-09-29] MEDS: INSULIN LISPRO 100 UNIT/ML SUBCUT SCH ×4 (07:39→20:43)
[2020-09-29 07:53] LABS: Lymphocytes 7 % (20-55); Segmented Neutrophils 93 % (50-85); Total Cells Counted 100
[2020-09-29 07:55] LABS: Acanthocytes Few; Burr Cells 1+; Hypochromasia Slight; Poikilocytosis Slight; Schistocytes 1+
[2020-09-29 07:56] LABS: Elliptocytes 1+; Platelet Estimate Adequate
[2020-09-29] MEDS: carvediloL 25 MG TABLET PO SCH ×2 (09:00→16:13)
[2020-09-29] MEDS: FERROUS SULFATE 325 MG TABLET PO SCH ×2 (09:00→16:13)
[2020-09-29] MEDS: ISOSORBIDE DINITRATE 20 MG TABLET PO SCH ×2 (09:00→20:42)
[2020-09-29] MEDS: DEXAMETHASONE 4 MG/1 ML VIAL IV SCH ×2 (09:00→20:30)
[2020-09-29] MEDS: DOCUSATE SODIUM 100 MG/10 ML UDCUP PO SCH (09:00)
[2020-09-29] MEDS: ASPIRIN EC 81 MG TABLET PO SCH (09:00)
[2020-09-29] MEDS: amLODIPine 2.5 MG TABLET PO SCH (09:00)
[2020-09-29] MEDS: HYDROCORTISONE 1% CREAM 28 GM TUBE TOP SCH ×3 (09:01→20:45)
[2020-09-29] MEDS: levETIRAcetam 250 MG TABLET PO SCH ×2 (09:01→20:42)
[2020-09-29] MEDS: SODIUM CHLORIDE 0.45% 1,000 ML IV SCH (12:47)
[2020-09-29] MEDS ORDERED: BISACODYL 5 MG TABLET PO PRN (14:51)
[2020-09-29] MEDS: POLYETHYLENE GLYCOL POWDER 17 GM PACK PO SCH (16:14)
[2020-09-29] MEDS: ACETAMINOPHEN 325 MG TABLET PO PRN (17:24)
[2020-09-29] MEDS: ATORVASTATIN 40 MG TABLET PO SCH (20:42)
[2020-09-29] MEDS: DOXAZOSIN 4 MG TABLET PO SCH (20:42)
[2020-09-29] MEDS: INSULIN GLARGINE 100 UNIT/ML SUBCUT SCH (20:43)
[2020-09-29] MEDS: ENOXAPARIN 30 MG/0.3 ML SYRINGE SUBCUT SCH (20:44)
[2020-09-30] MEDS: DOCUSATE SODIUM 100 MG/10 ML UDCUP PO SCH ×3 (00:58→21:34)
[2020-09-30] MEDS: SODIUM CHLORIDE 0.45% 1,000 ML IV SCH ×2 (00:59→16:10)
[2020-09-30 06:01] LABS: Basophils % 0.1 % (0.0-0.8); Hematocrit 21.6 VOL% (35.7-47.0); Hemoglobin 7.3 GM/DL (12.0-16.0); Immature Granulocytes % 0.6 %; Immature Granulocytes Absolute 0.07 #; Lymphocytes # 0.5 10*3/uL (1.4-4.0); Lymphocytes % 4.2 % (21.3-54.2); Mean Corpuscular HGB Conc 33.8 GM/DL (32-36); Mean Corpuscular Volume 90.8 FL (87-102); Mean Platelet Volume 12.1 FL (9.6-12.0); Neutrophils % 93.1 % (38.7-73.9); Platelet Count 117 T/CUMM (130-400); Red Blood Count 2.38 MC/CUMM (3.8-5.5); Red Cell Distribution Width 15.8 % (9.3-17.3); White Blood Count 11.3 T/CUMM (4-12)
[2020-09-30 06:28] LABS: Lymphocytes 3 % (20-55); Segmented Neutrophils 96 % (50-85); Total Cells Counted 100
[2020-09-30 06:29] LABS: Hypochromasia 2+; Microcytosis 1+; Ovalocytes Slight
[2020-09-30 06:33] LABS: Calcium 7.6 MG/DL (8.5-10.1); Osmolality,Calculated 325.9 MOS/KG (273-304)
[2020-09-30] MEDS: amLODIPine 2.5 MG TABLET PO SCH (08:38)
[2020-09-30] MEDS: POLYETHYLENE GLYCOL POWDER 17 GM PACK PO SCH (08:38)
[2020-09-30] MEDS: FERROUS SULFATE 325 MG TABLET PO SCH ×2 (08:38→17:30)
[2020-09-30] MEDS: HYDROCORTISONE 1% CREAM 28 GM TUBE TOP SCH ×3 (08:38→21:38)
[2020-09-30] MEDS: ASPIRIN EC 81 MG TABLET PO SCH (08:38)
[2020-09-30] MEDS: INSULIN LISPRO 100 UNIT/ML SUBCUT SCH ×4 (08:38→22:33)
[2020-09-30] MEDS: DEXAMETHASONE 4 MG/1 ML VIAL IV SCH ×2 (08:38→21:35)
[2020-09-30] MEDS: ISOSORBIDE DINITRATE 20 MG TABLET PO SCH ×2 (08:38→21:34)
[2020-09-30] MEDS: carvediloL 25 MG TABLET PO SCH ×2 (08:38→17:30)
[2020-09-30] MEDS: levETIRAcetam 250 MG TABLET PO SCH ×2 (08:38→21:34)
[2020-09-30] MEDS: OLANZapine 2.5 MG TABLET PO PRN (08:42)
[2020-09-30] MEDS: ACETAMINOPHEN 325 MG TABLET PO PRN (12:15)
[2020-09-30] MEDS: DEXTROSE 5% 1,000 ML IV SCH (16:27)
[2020-09-30] MEDS ORDERED: SODIUM BICARBONATE 50 MEQ/50 ML VIAL IV ONE ×2 (17:06→18:00)
[2020-09-30] MEDS: ENOXAPARIN 30 MG/0.3 ML SYRINGE SUBCUT SCH (21:34)
[2020-09-30] MEDS: ATORVASTATIN 40 MG TABLET PO SCH (21:34)
[2020-09-30] MEDS: DOXAZOSIN 4 MG TABLET PO SCH (21:34)
[2020-09-30] MEDS: INSULIN GLARGINE 100 UNIT/ML SUBCUT SCH (21:35)
[2020-10-01] MEDS: DEXTROSE 5% 1,000 ML IV SCH ×2 (06:21→16:10)
[2020-10-01] MEDS: INSULIN LISPRO 100 UNIT/ML SUBCUT SCH ×4 (08:20→21:27)
[2020-10-01] MEDS: amLODIPine 2.5 MG TABLET PO SCH (09:18)
[2020-10-01] MEDS: carvediloL 25 MG TABLET PO SCH ×2 (09:19→16:09)
[2020-10-01] MEDS: ASPIRIN EC 81 MG TABLET PO SCH (09:19)
[2020-10-01] MEDS: levETIRAcetam 250 MG TABLET PO SCH ×2 (09:19→21:30)
[2020-10-01] MEDS: ISOSORBIDE DINITRATE 20 MG TABLET PO SCH ×2 (09:19→21:29)
[2020-10-01] MEDS: FERROUS SULFATE 325 MG TABLET PO SCH ×2 (09:19→16:09)
[2020-10-01] MEDS: DOCUSATE SODIUM 100 MG/10 ML UDCUP PO SCH ×2 (09:19→21:29)
[2020-10-01] MEDS: DEXAMETHASONE 4 MG/1 ML VIAL IV SCH ×2 (09:20→21:28)
[2020-10-01] MEDS: POLYETHYLENE GLYCOL POWDER 17 GM PACK PO SCH (09:20)
[2020-10-01] MEDS: HYDROCORTISONE 1% CREAM 28 GM TUBE TOP SCH ×3 (09:20→21:29)
[2020-10-01 11:50] LABS: Basophils % 0.1 % (0.0-0.8); Hematocrit 23.7 VOL% (35.7-47.0); Hemoglobin 7.3 GM/DL (12.0-16.0); Immature Granulocytes % 0.9 %; Immature Granulocytes Absolute 0.12 #; Lymphocytes # 0.7 10*3/uL (1.4-4.0); Mean Corpuscular HGB Conc 30.8 GM/DL (32-36); Mean Corpuscular Volume 97.5 FL (87-102); Mean Platelet Volume 12.2 FL (9.6-12.0); Monocytes % 3.4 % (1.7-12.7); Neutrophils % 90.6 % (38.7-73.9); Platelet Count 106 T/CUMM (130-400); Red Blood Count 2.43 MC/CUMM (3.8-5.5); Red Cell Distribution Width 15.8 % (9.3-17.3)
[2020-10-01 12:13] LABS: Calcium 7.5 MG/DL (8.5-10.1); Osmolality,Calculated 317.6 MOS/KG (273-304)
[2020-10-01 13:06] LABS: Anisocytosis 1+; Burr Cells 1+; Lymphocytes 9 % (20-55); Platelet Estimate Adequate; Segmented Neutrophils 88 % (50-85); Total Cells Counted 100
[2020-10-01 13:07] LABS: Acanthocytes Few; Poikilocytosis 1+
[2020-10-01 13:28] LABS: HIV Antigen/Antibody Result Nonreactive (Nonreactive); Hepatitis B Core IgM Quant 0.13 Index; Hepatitis B Surface Ag Quant 0.47 Index; Hepatitis B Surface Ag Result Negative (Negative); Hepatitis C Virus Ab Quant < 0.02 Index; Hepatitis C Virus Ab Result Negative (Negative)
[2020-10-01] MEDS ORDERED: SODIUM BICARBONATE 50 MEQ/50 ML VIAL IV ONE (14:42)
[2020-10-01] MEDS: SODIUM BICARB INJ 100 MEQ in DEXTROSE 5% 1,000 ML IV SCH (17:55)
[2020-10-01] MEDS ORDERED: SODIUM BICARBONATE 50 MEQ/50 ML SYRINGE IV ONE (18:00)
[2020-10-01] MEDS: INSULIN GLARGINE 100 UNIT/ML SUBCUT SCH (21:28)
[2020-10-01] MEDS: ENOXAPARIN 30 MG/0.3 ML SYRINGE SUBCUT SCH (21:29)
[2020-10-01] MEDS: ATORVASTATIN 40 MG TABLET PO SCH (21:29)
[2020-10-01] MEDS: DOXAZOSIN 4 MG TABLET PO SCH (21:31)
[2020-10-01] MEDS: LORazepam 2 MG/1 ML VIAL IV PRN (22:31)
[2020-10-02] MEDS: SODIUM BICARB INJ 100 MEQ in DEXTROSE 5% 1,000 ML IV SCH ×2 (04:33→15:17)
[2020-10-02 05:49] LABS: Basophils % 0.1 % (0.0-0.8); Hematocrit 25.5 VOL% (35.7-47.0); Immature Granulocytes % 0.5 %; Immature Granulocytes Absolute 0.06 #; Lymphocytes # 0.4 10*3/uL (1.4-4.0); Lymphocytes % 3.2 % (21.3-54.2); Mean Corpuscular HGB Conc 31.4 GM/DL (32-36); Mean Corpuscular Volume 94.4 FL (87-102); Mean Platelet Volume 12.6 FL (9.6-12.0); Neutrophils % 95.2 % (38.7-73.9); Platelet Count 126 T/CUMM (130-400); Red Cell Distribution Width 15.5 % (9.3-17.3); White Blood Count 12.3 T/CUMM (4-12)
[2020-10-02 06:08] LABS: Calcium 7.7 MG/DL (8.5-10.1); Osmolality,Calculated 323.3 MOS/KG (273-304)
[2020-10-02 06:12] LABS: Lymphocytes 1 % (20-55); Segmented Neutrophils 98 % (50-85); Total Cells Counted 100
[2020-10-02 06:13] LABS: Hypochromasia 1+; Microcytosis 1+; Platelet Estimate Normal
[2020-10-02] MEDS: DEXAMETHASONE 4 MG/1 ML VIAL IV SCH ×2 (08:47→20:41)
[2020-10-02] MEDS: FERROUS SULFATE 325 MG TABLET PO SCH ×2 (08:48→16:24)
[2020-10-02] MEDS: DOCUSATE SODIUM 100 MG/10 ML UDCUP PO SCH ×3 (08:48→20:59)
[2020-10-02] MEDS: levETIRAcetam 250 MG TABLET PO SCH ×3 (08:48→20:59)
[2020-10-02] MEDS: ISOSORBIDE DINITRATE 20 MG TABLET PO SCH ×3 (08:48→20:59)
[2020-10-02] MEDS: carvediloL 25 MG TABLET PO SCH ×2 (08:49→16:24)
[2020-10-02] MEDS: ASPIRIN EC 81 MG TABLET PO SCH (08:49)
[2020-10-02] MEDS: amLODIPine 2.5 MG TABLET PO SCH (08:49)
[2020-10-02] MEDS: POLYETHYLENE GLYCOL POWDER 17 GM PACK PO SCH (08:49)
[2020-10-02] MEDS: HYDROCORTISONE 1% CREAM 28 GM TUBE TOP SCH ×3 (08:50→20:42)
[2020-10-02] MEDS: INSULIN LISPRO 100 UNIT/ML SUBCUT SCH ×4 (08:50→20:57)
[2020-10-02] MEDS ORDERED: LORazepam 2 MG/1 ML VIAL IV PRN (11:04)
[2020-10-02] MEDS: INSULIN GLARGINE 100 UNIT/ML SUBCUT SCH (20:41)
[2020-10-02] MEDS: ENOXAPARIN 30 MG/0.3 ML SYRINGE SUBCUT SCH (20:41)
[2020-10-02] MEDS: DOXAZOSIN 4 MG TABLET PO SCH ×2 (20:42→20:59)
[2020-10-02] MEDS: ATORVASTATIN 40 MG TABLET PO SCH ×2 (20:42→20:59)
[2020-10-03] MEDS: SODIUM BICARB INJ 100 MEQ in DEXTROSE 5% 1,000 ML IV SCH ×2 (02:02→13:10)
[2020-10-03] MEDS: ZIPRASIDONE 20 MG/1 ML VIAL IM PRN (05:23)
[2020-10-03] MEDS: INSULIN LISPRO 100 UNIT/ML SUBCUT SCH ×4 (10:24→22:36)
[2020-10-03] MEDS: carvediloL 25 MG TABLET PO SCH ×2 (10:24→16:48)
[2020-10-03] MEDS: ASPIRIN EC 81 MG TABLET PO SCH (11:24)
[2020-10-03] MEDS: FERROUS SULFATE 325 MG TABLET PO SCH ×2 (11:24→16:48)
[2020-10-03] MEDS: ISOSORBIDE DINITRATE 20 MG TABLET PO SCH ×2 (11:25→20:56)
[2020-10-03] MEDS: HYDROCORTISONE 1% CREAM 28 GM TUBE TOP SCH ×3 (11:25→20:56)
[2020-10-03] MEDS: DOCUSATE SODIUM 100 MG/10 ML UDCUP PO SCH ×2 (11:25→20:56)
[2020-10-03] MEDS: POLYETHYLENE GLYCOL POWDER 17 GM PACK PO SCH (11:25)
[2020-10-03] MEDS: amLODIPine 2.5 MG TABLET PO SCH (11:25)
[2020-10-03] MEDS: DEXAMETHASONE 4 MG/1 ML VIAL IV SCH ×2 (11:25→20:56)
[2020-10-03] MEDS: levETIRAcetam 250 MG TABLET PO SCH ×2 (11:25→20:56)
[2020-10-03] MEDS: INSULIN GLARGINE 100 UNIT/ML SUBCUT SCH (20:55)
[2020-10-03] MEDS: ATORVASTATIN 40 MG TABLET PO SCH (20:56)
[2020-10-03] MEDS: ENOXAPARIN 30 MG/0.3 ML SYRINGE SUBCUT SCH (20:56)
[2020-10-03] MEDS: DOXAZOSIN 4 MG TABLET PO SCH (20:56)
[2020-10-04] MEDS: SODIUM BICARB INJ 100 MEQ in DEXTROSE 5% 1,000 ML IV SCH (03:45)
[2020-10-04] MEDS: DOCUSATE SODIUM 100 MG/10 ML UDCUP PO SCH ×2 (08:28→20:52)
[2020-10-04] MEDS: carvediloL 25 MG TABLET PO SCH ×2 (08:28→17:25)
[2020-10-04] MEDS: amLODIPine 2.5 MG TABLET PO SCH (08:28)
[2020-10-04] MEDS: ASPIRIN EC 81 MG TABLET PO SCH (08:28)
[2020-10-04] MEDS: FERROUS SULFATE 325 MG TABLET PO SCH ×2 (08:29→17:25)
[2020-10-04] MEDS: ISOSORBIDE DINITRATE 20 MG TABLET PO SCH ×2 (08:29→20:51)
[2020-10-04] MEDS: levETIRAcetam 250 MG TABLET PO SCH ×2 (08:29→20:51)
[2020-10-04] MEDS: DEXAMETHASONE 4 MG/1 ML VIAL IV SCH ×2 (08:29→20:53)
[2020-10-04] MEDS: INSULIN LISPRO 100 UNIT/ML SUBCUT SCH ×4 (08:30→20:50)
[2020-10-04] MEDS: POLYETHYLENE GLYCOL POWDER 17 GM PACK PO SCH (08:30)
[2020-10-04] MEDS: HYDROCORTISONE 1% CREAM 28 GM TUBE TOP SCH ×3 (08:30→20:53)
[2020-10-04] MEDS: INSULIN GLARGINE 100 UNIT/ML SUBCUT SCH (20:50)
[2020-10-04] MEDS: DOXAZOSIN 4 MG TABLET PO SCH (20:51)
[2020-10-04] MEDS: ATORVASTATIN 40 MG TABLET PO SCH (20:52)
[2020-10-04] MEDS: ENOXAPARIN 30 MG/0.3 ML SYRINGE SUBCUT SCH (20:53)
[2020-10-05] MEDS: ASPIRIN EC 81 MG TABLET PO SCH (08:14)
[2020-10-05] MEDS: amLODIPine 2.5 MG TABLET PO SCH (08:14)
[2020-10-05] MEDS: FERROUS SULFATE 325 MG TABLET PO SCH (08:14)
[2020-10-05] MEDS: ISOSORBIDE DINITRATE 20 MG TABLET PO SCH (08:14)
[2020-10-05] MEDS: levETIRAcetam 250 MG TABLET PO SCH (08:14)
[2020-10-05] MEDS: carvediloL 25 MG TABLET PO SCH (08:14)
[2020-10-05] MEDS: DEXAMETHASONE 4 MG/1 ML VIAL IV SCH (08:15)
[2020-10-05] MEDS: SODIUM BICARB INJ 100 MEQ in DEXTROSE 5% 1,000 ML IV SCH (08:16)
[2020-10-05] MEDS: INSULIN LISPRO 100 UNIT/ML SUBCUT SCH (09:02)
[2020-10-05] MEDS: HYDROCORTISONE 1% CREAM 28 GM TUBE TOP SCH (09:03)
[2020-10-05 11:52] VITALS: BP 136/61
== END 2020-10-05 15:06 | disposition hospice, home (50) | DRG 54 ==
LOC: EDUNIT# → EDBD → N.ED 06:34 → N.EDINP 09:01 → SUATTDRO 09:01 → N.EDINP 10:15 → N.5E 10:22
PROVIDERS: ADMIT Internal Medicine Geriatric Medicine; ATTEND Internal Medicine